=== PATIENT | male | born 1945 | race Hispanic/Latino ===

== ENCOUNTER 2018-02-11 08:50 | Observation (INO) | payer OTHER ==
[2018-02-07 12:58] LABS: BASOPHILS % (AUTO) 0.4 % (0.0-5.0); EOSINOPHILS % (AUTO) 0.7 % (0.0-8.0); HEMATOCRIT 36.6 % (42-54); LYMPHOCYTES % (AUTO) 13.3 % (21.0-51.0); MEAN CORPUSCULAR HEMOGLOBIN 33.2 pg (27.0-33.0); MEAN CORPUSCULAR HGB CONC 34.4 g/dL (32.0-36.0); MEAN CORPUSCULAR VOLUME 96.5 fL (79-99); MONOCYTES % (AUTO) 9.5 % (3.0-13.0); NEUTROPHILS % (AUTO) 76.1 % (40.0-77.0); PLATELET COUNT (AUTO) 198 K/uL (130-400); RED BLOOD CELL COUNT(AUTO) 3.79 MIL/uL (4.50-6.20); WHITE BLOOD COUNT (AUTO) 6.9 K/uL (4.8-10.8)
[2018-02-07 13:02] LABS: CREATININE 1.1 mg/dL (0.5-1.5); POTASSIUM 3.9 mmol/L (3.5-5.1)
[2018-02-07 13:08] LABS: APPEARANCE,URINE Clear (CLEAR); BILIRUBIN,URINE Negative (NEGATIVE); COLOR,URINE Yellow (YELLOW); GLUCOSE, URINE (UA) Negative (NEGATIVE); KETONES,URINE Negative (NEGATIVE); LEUKOCYTE ESTERASE ,URINE Negative (NEGATIVE); NITRATE,URINE Negative (NEGATIVE); OCCULT BLOOD,URINE Negative (NEGATIVE); PROTEIN,URINE Negative (NEGATIVE)
[2018-02-07 13:09] LABS: INR 2.92 (0.85-1.15); PARTIAL THROMBOPLASTIN TIME 42.5 SEC (26.3-35.5)
[2018-02-07 13:35] VITALS: BP 166/80
[2018-02-11] VITALS (11 sets, daily range): BP systolic 113–178; BP diastolic 52–89
[~2018-02-11] VITALS: Ht 162.6 cm; Wt 75.0 kg
[~2018-02-11 08:50] MED LIST: ALLO300T2 PO; ASCO500C6 PO; ASPI-555 PO; BENA40TA9 PO; LEVO125 PO; POTA-79 PO; TORS20TA4 PO; WARF4TAB72 PO; zinc PO
[2018-02-11 09:46] LABS: INR 1.88 (0.85-1.15); PARTIAL THROMBOPLASTIN TIME 38.5 SEC (26.3-35.5); PROTHROMBIN TIME 19.5 SEC (9.6-11.6)
[2018-02-11] MEDS ORDERED: NITROGLYCERIN 5 MG/ML 10 ML VIAL IV ONE (10:35)
[2018-02-11] MEDS ORDERED: HEPARIN SODIUM 1000UNIT/ML 10ML VIAL ONE (10:35)
[2018-02-11] MEDS ORDERED: ISOVUE-300 100 ML VIAL IV ONE (10:36)
[2018-02-11] MEDS ORDERED: LIDOCAINE HCL 2% 20ML ONE (10:36)
[2018-02-11] MEDS ORDERED: SODIUM BICARB 50MEQ 50ML VIAL ONE (10:36)
[2018-02-11] MEDS ORDERED: IOPAMIDOL-370 100 ML VIAL IV ONE (10:36)
[2018-02-11] MEDS ORDERED: SODIUM CHLORIDE 0.9% 1000ML 1,000 ML IV ONE (10:48)
[2018-02-11] MEDS ORDERED: HYDRALAZINE HCL 20 MG/ML VIAL IV ONE (13:00)
[2018-02-11] MEDS ORDERED: IOPAMIDOL-370 75 ML VIAL IV ONE (13:10)
[2018-02-11 13:46] LABS: INR > 7.00 (0.85-1.15)
[2018-02-11 13:47] LABS: PARTIAL THROMBOPLASTIN TIME > 120.0 SEC (26.3-35.5); PROTHROMBIN TIME > 63.0 SEC (9.6-11.6)
[2018-02-11] MEDS ORDERED: CLOPIDOGREL BISULFATE 300 MG TAB ONE (14:22)
[2018-02-11] MEDS ORDERED: SODIUM CHLORIDE 0.9% 1000ML 1,000 ML IV SCH (14:24)
[2018-02-11] MEDS ORDERED: MORPHINE SULFATE 5 MG/ML VIAL IVP SCH ×2 (14:30)
[2018-02-11] MEDS ORDERED: ONDANSETRON HCL 4 MG/2 ML VIAL IVP SCH (14:30)
[2018-02-11] MEDS ORDERED: ONDANSETRON HCL 4 MG/2 ML VIAL IVP PRN (14:30)
[2018-02-11] MEDS ORDERED: CLOP75TA14 PO (14:35)
[2018-02-11 16:32] LABS: INR 1.82 (0.85-1.15); PROTHROMBIN TIME 18.9 SEC (9.6-11.6)
[2018-02-11 16:33] LABS: BASOPHILS % (AUTO) 0.4 % (0.0-5.0); EOSINOPHILS % (AUTO) 0.6 % (0.0-8.0); HEMATOCRIT 37.4 % (42-54); LYMPHOCYTES % (AUTO) 9.5 % (21.0-51.0); MEAN CORPUSCULAR HEMOGLOBIN 33.4 pg (27.0-33.0); MEAN CORPUSCULAR HGB CONC 34.5 g/dL (32.0-36.0); MEAN CORPUSCULAR VOLUME 96.7 fL (79-99); MONOCYTES % (AUTO) 9.6 % (3.0-13.0); NEUTROPHILS % (AUTO) 79.9 % (40.0-77.0); PLATELET COUNT (AUTO) 197 K/uL (130-400); RED BLOOD CELL COUNT(AUTO) 3.87 MIL/uL (4.50-6.20); RED CELL DISTRIBUTION WIDTH 15.9 % (11.0-15.5); WHITE BLOOD COUNT (AUTO) 7.7 K/uL (4.8-10.8)
[2018-02-11] MEDS ORDERED: MORPHINE SULFATE 4 MG/1ML SYG IV PRN ×2 (19:45)
[2018-02-11] MEDS ORDERED: ATORVASTATIN CALCIUM 20 MG TABLET PO SCH (21:00)
[2018-02-11] MEDS: ASPIRIN 81 MG EC TAB PO SCH (22:39)
[2018-02-12 03:46] VITALS: BP 137/53
[2018-02-12 03:59] LABS: HEMATOCRIT 34.6 % (42-54); MEAN CORPUSCULAR HEMOGLOBIN 33.4 pg (27.0-33.0); MEAN CORPUSCULAR HGB CONC 34.3 g/dL (32.0-36.0); MEAN CORPUSCULAR VOLUME 97.3 fL (79-99); NUCLEATED RED BLOOD CELLS 0.1 % (0.0-0.19); PLATELET COUNT (AUTO) 186 K/uL (130-400); RED BLOOD CELL COUNT(AUTO) 3.56 MIL/uL (4.50-6.20); RED CELL DISTRIBUTION WIDTH 15.9 % (11.0-15.5); WHITE BLOOD COUNT (AUTO) 8.9 K/uL (4.8-10.8)
[2018-02-12 04:07] LABS: INR 1.6 (0.85-1.15); PARTIAL THROMBOPLASTIN TIME 37.2 SEC (26.3-35.5); PROTHROMBIN TIME 16.6 SEC (9.6-11.6)
[2018-02-12 04:18] LABS: CREATININE 1.2 mg/dL (0.5-1.5); POTASSIUM 4.3 mmol/L (3.5-5.1)
[2018-02-12] MEDS ORDERED: LEVOTHYROXINE 125 MCG TABLET PO SCH (07:30)
[2018-02-12 07:46] VITALS: BP 155/76
[2018-02-12] MEDS ORDERED: POTASSIUM CHLORIDE 20 MEQ ERTAB PO SCH (09:00)
[2018-02-12] MEDS ORDERED: ZINC 50 MG PO SCH (09:00)
[2018-02-12] MEDS ORDERED: TORSEMIDE 20 MG TAB PO SCH (09:00)
[2018-02-12] MEDS ORDERED: ASCORBIC ACID 500 MG TAB PO SCH (09:00)
[2018-02-12] MEDS: ASPIRIN 81 MG EC TAB PO SCH (09:00)
[2018-02-12] MEDS ORDERED: CLOPIDOGREL BISULFATE 75 MG TAB PO SCH (09:00)
[2018-02-12] MEDS ORDERED: BENAZEPRIL HCL 10 MG TABLET PO SCH (09:00)
[2018-02-12] MEDS ORDERED: ALLOPURINOL 300 MG TABLET PO SCH (09:00)
[2018-02-12] MEDS ORDERED: WARFARIN SODIUM 10 MG TABLET PO SCH (09:45)
[2018-02-12] MEDS ORDERED: ENOXAPARIN SODIUM 60 MG/0.6 ML SQ SCH (10:00)
[2018-02-12 11:15] VITALS: BP 141/55
[2018-02-12 16:19] VITALS: BP 133/55
== END 2018-02-12 18:23 | disposition home or self-care (01) ==
LOC: DAH 08:50 → DAHIP 08:51 → DAH 08:51 → 2AH 15:13
PROVIDERS: ADMIT Internal Medicine Cardiovascular Disease; ATTEND Internal Medicine Cardiovascular Disease
DX: I25.119 Atherosclerotic heart disease of native coronary artery with unspecified angina pectoris (principal); I11.0 Hypertensive heart disease with heart failure; I50.42 Chronic combined systolic (congestive) and diastolic (congestive) heart failure; I35.0 Nonrheumatic aortic (valve) stenosis; E78.5 Hyperlipidemia, unspecified; E03.9 Hypothyroidism, unspecified; I87.2 Venous insufficiency (chronic) (peripheral); I48.2 Chronic atrial fibrillation; I65.22 Occlusion and stenosis of left carotid artery; I70.8 Atherosclerosis of other arteries; Z95.1 Presence of aortocoronary bypass graft; Z95.2 Presence of prosthetic heart valve
CPT/HCPCS: 36223; 36415 ×3; 71045; 76882; 80048 ×2; 80061; 81003; 82948; 85025 ×2; 85027; 85347 ×2; 85610 ×5; 85730 ×6; 86850; 86900; 86901; 93005; 93461; 96372; 96374; 96375; A4606; A6250; C1725 ×3; C1769 ×6; C1874 ×4; C1887 ×3; C1893; C1894 ×4; C9600 ×2; C9601; C9604; G0378 ×34; J0360; J1644; J1650; J2270; J2405; J3490 ×3; J7030; Q9967 ×3

== ENCOUNTER → 2018-05-29 | Outpatient (CLI) | payer OTHER ==
[~2018-05-29] MED LIST changes: -ASPI-555 PO; +CLOP75TA14 PO; +IOPAMIDOL-370 100 ML VIAL IV ONE; +ISOVUE-370 50ML VIAL IV ONE
== END | disposition home or self-care (01) ==
LOC: OIH 09:12
PROVIDERS: ATTEND Internal Medicine Cardiovascular Disease
DX: I51.7 Cardiomegaly (principal); N26.1 Atrophy of kidney (terminal); I70.1 Atherosclerosis of renal artery; I70.0 Atherosclerosis of aorta; I77.4 Celiac artery compression syndrome
CPT/HCPCS: 75635; Q9967 ×2

== ENCOUNTER 2020-11-24 18:37 | Inpatient (IN) | payer OTHER ==
[~2020-11-24] VITALS: Ht 162.6 cm; Wt 68.0 kg
[~2020-11-24 18:37] MED LIST changes: -BENA40TA9 PO; +BENA40TA92 PO; -IOPAMIDOL-370 100 ML VIAL IV ONE; -ISOVUE-370 50ML VIAL IV ONE
[2020-11-24 19:08] LABS: BASOPHILS % (AUTO) 0.4 % (0.0-5.0); HEMATOCRIT 37.8 % (42-54); LYMPHOCYTES % (AUTO) 5.7 % (21.0-51.0); MEAN CORPUSCULAR HGB CONC 33.9 g/dL (32.0-36.0); MEAN CORPUSCULAR VOLUME 100.5 fL (79-99); MONOCYTES % (AUTO) 8.3 % (3.0-13.0); NEUTROPHILS % (AUTO) 84.2 % (40.0-77.0); PLATELET COUNT (AUTO) 185 K/uL (130-400); RED BLOOD CELL COUNT(AUTO) 3.76 MIL/uL (4.50-6.20); RED CELL DISTRIBUTION WIDTH 14.6 % (11.0-15.5); WHITE BLOOD COUNT (AUTO) 11.3 K/uL (4.8-10.8)
[2020-11-24 19:19] LABS: CREATININE 1.6 mg/dL (0.5-1.5); POTASSIUM 4.6 mmol/L (3.5-5.1)
[2020-11-24 19:21] LABS: INR 2.02 (0.85-1.15); PROTHROMBIN TIME 20.7 SEC (9.6-11.6)
[2020-11-24 19:22] LABS: PARTIAL THROMBOPLASTIN TIME 38.7 SEC (26.3-35.5)
[2020-11-24 19:32] LABS: ALBUMIN 3.3 g/dL (3.5-5.0); BILIRUBIN,TOTAL 1.4 mg/dL (0.2-1.0); TOTAL PROTEIN, SERUM 6.6 g/dL (6.0-8.3)
[2020-11-24 19:58] LABS: B-TYPE NATRIURETIC PEPTIDE 332 pg/mL (0-100)
[2020-11-24] MEDS ORDERED: CEFTRIAXONE 1G VIAL ONE (20:23)
[2020-11-24] MEDS ORDERED: 0.9%NACL 50ML 50 ML IV ONE (20:24)
[2020-11-24 21:24] LABS: APPEARANCE,URINE Clear (CLEAR); BILIRUBIN,URINE Negative (NEGATIVE); COLOR,URINE Yellow (YELLOW); GLUCOSE, URINE (UA) Negative (NEGATIVE); KETONES,URINE Trace mg/dL (NEGATIVE); LEUKOCYTE ESTERASE ,URINE Negative (NEGATIVE); NITRATE,URINE Negative (NEGATIVE); OCCULT BLOOD,URINE Trace (NEGATIVE); PROTEIN,URINE Negative (NEGATIVE)
[2020-11-24 21:33] LABS: BACTERIA,URINE Rare /HPF (None Seen); MUCUS,URINE Rare LPF (None Seen); SQUAMOUS EPITHELIAL CELL,UR Few /HPF (0-2); WBC,URINE 0-1 /HPF (0-1)
[2020-11-25] MEDS ORDERED: ONDANSETRON 4MG INJ IV PRN
[2020-11-25] MEDS ORDERED: ACETAMINOPHEN 325 MG TAB PO PRN ×2
[2020-11-25] MEDS ORDERED: DOXYCYCLINE 100MG+NS 250ML 250 ML IV ONE ×2 (00:15→11:42)
[2020-11-25 01:09] LABS: TROPONIN I 0.39 ng/mL (0.00-0.06)
[2020-11-25] MEDS ORDERED: 0.9%NACL 1000ML 1,000 ML IV ONE ×2 (01:40→11:43)
[2020-11-25] MEDS: 0.9%NACL 1000ML 1,000 ML IV SCH (02:30)
[2020-11-25] MEDS: DOXYCYCLINE 100MG+NS 250ML 250 ML IV SCH (02:30)
[2020-11-25 05:46] LABS: BASOPHILS % (AUTO) 0.4 % (0.0-5.0); HEMATOCRIT 38.8 % (42-54); LYMPHOCYTES % (AUTO) 8.4 % (21.0-51.0); MEAN CORPUSCULAR HEMOGLOBIN 33.5 pg (27.0-33.0); MEAN CORPUSCULAR HGB CONC 32.7 g/dL (32.0-36.0); MEAN CORPUSCULAR VOLUME 102.4 fL (79-99); MONOCYTES % (AUTO) 17.3 % (3.0-13.0); NEUTROPHILS % (AUTO) 72.1 % (40.0-77.0); PLATELET COUNT (AUTO) 136 K/uL (130-400); RED BLOOD CELL COUNT(AUTO) 3.79 MIL/uL (4.50-6.20); RED CELL DISTRIBUTION WIDTH 14.5 % (11.0-15.5); WHITE BLOOD COUNT (AUTO) 9.7 K/uL (4.8-10.8)
[2020-11-25 06:07] LABS: CREATININE 1.5 mg/dL (0.5-1.5); POTASSIUM 4.7 mmol/L (3.5-5.1)
[2020-11-25 08:00] LABS: TROPONIN I 1.42 ng/mL (0.00-0.06)
[2020-11-25] MEDS ORDERED: ASPIRIN 81MG CHEW TAB ONE (08:15)
[2020-11-25] MEDS ORDERED: FAMOTIDINE 20MG TAB ONE (08:16)
[2020-11-25] MEDS ORDERED: CEFTRIAXONE 1G VIAL ONE (08:16)
[2020-11-25] MEDS ORDERED: ENOXAPARIN SODIUM 30 MG/0.3 ML SQ ONE (08:16)
[2020-11-25] MEDS ORDERED: 0.9%NACL 50ML 50 ML IV ONE (08:17)
[2020-11-25] MEDS ORDERED: ENOXAPARIN SODIUM 30 MG/0.3 ML SQ SCH (09:00)
[2020-11-25] MEDS ORDERED: CEFTRIAXONE 1G VIAL IV SCH (09:00)
[2020-11-25] MEDS ORDERED: PHARMACY COMMUNICATION MISC SCH (09:15)
[2020-11-25] MEDS ORDERED: ATROPINE 1MG SYG IVP ONE ×3 (09:23→13:00)
[2020-11-25] MEDS ORDERED: LACTATED RINGERS 1000ML 1,000 ML IV SCH (09:45)
[2020-11-25] MEDS ORDERED: ALBUTEROL 0.083% 2.5 MG/3 ML INH IH ONE ×2 (11:08→11:11)
[2020-11-25] MEDS ORDERED: LEVOTHYROXINE 100MCG VIAL IV SCH (11:15)
[2020-11-25] MEDS ORDERED: ZOSYN 3.375GM+NS 50ML 50 ML IV ONE (12:18)
[2020-11-25] MEDS ORDERED: FUROSEMIDE 20MG VIAL ONE (12:18)
[2020-11-25] MEDS: ALBUTEROL 0.083% 2.5 MG/3 ML INH IH SCH ×2 (12:57→18:28)
[2020-11-25 14:39] LABS: TROPONIN I 0.91 ng/mL (0.00-0.06)
[2020-11-25] MEDS ORDERED: BUDESONIDE 0.5 MG/2 ML INH IH ONE (18:23)
[2020-11-25] MEDS: BUDESONIDE 0.5 MG/2 ML INH IH SCH (18:28)
[2020-11-26] VITALS (16 sets, daily range): BP systolic 114–156; BP diastolic 40–88
[2020-11-26] MEDS: ALBUTEROL 0.083% 2.5 MG/3 ML INH IH SCH ×5 (00:04→23:56)
[2020-11-26] MEDS ORDERED: ZOSYN 3.375GM+NS 50ML 50 ML IV ONE (00:58)
[2020-11-26] MEDS ORDERED: DOXYCYCLINE 100MG+NS 250ML 250 ML IV ONE (00:59)
[2020-11-26] MEDS: FUROSEMIDE 20MG VIAL IV SCH ×2 (02:30→08:36)
[2020-11-26] MEDS: ZOSYN 3.375GM+NS 50ML 50 ML IV SCH ×4 (02:30→20:09)
[2020-11-26] MEDS: ASPIRIN 81MG CHEW TAB PO SCH ×2 (02:30→08:35)
[2020-11-26] MEDS: 0.9%NACL 1000ML 1,000 ML IV SCH (02:30)
[2020-11-26] MEDS: DOXYCYCLINE 100MG+NS 250ML 250 ML IV SCH ×3 (02:30→23:08)
[2020-11-26] MEDS: FAMOTIDINE 20MG TAB PO SCH ×2 (02:30→08:35)
[2020-11-26] MEDS: ALBUMIN (HUMAN) 5% 250 ML IV SCH (02:30)
[2020-11-26 04:19] LABS: BASOPHILS % (AUTO) 0.5 % (0.0-5.0); EOSINOPHILS % (AUTO) 0.2 % (0.0-8.0); HEMATOCRIT 33.7 % (42-54); LYMPHOCYTES % (AUTO) 7.7 % (21.0-51.0); MEAN CORPUSCULAR HEMOGLOBIN 33.8 pg (27.0-33.0); MEAN CORPUSCULAR HGB CONC 33.2 g/dL (32.0-36.0); MEAN CORPUSCULAR VOLUME 101.8 fL (79-99); MONOCYTES % (AUTO) 16.5 % (3.0-13.0); NEUTROPHILS % (AUTO) 73.3 % (40.0-77.0); PLATELET COUNT (AUTO) 134 K/uL (130-400); RED BLOOD CELL COUNT(AUTO) 3.31 MIL/uL (4.50-6.20); RED CELL DISTRIBUTION WIDTH 14.6 % (11.0-15.5); WHITE BLOOD COUNT (AUTO) 6.5 K/uL (4.8-10.8)
[2020-11-26 04:44] LABS: CREATININE 1.5 mg/dL (0.5-1.5); POTASSIUM 3.8 mmol/L (3.5-5.1); THYROID STIMULATING HORMONE 3.35 uIU/mL (0.36-3.74)
[2020-11-26] MEDS: BUDESONIDE 0.5 MG/2 ML INH IH SCH ×2 (06:27→19:05)
[2020-11-26] MEDS ORDERED: LEVOTHYROXINE 100 MCG TABLET PO SCH (06:30)
[2020-11-26] MEDS ORDERED: PHARMACY COMMUNICATION MISC SCH (08:45)
[2020-11-26] MEDS: HEPARIN 25,000 UNITS/250ML D5W 250 ML IV PRN (09:55)
[2020-11-26] MEDS ORDERED: HEPARIN 5,000 UNIT VIAL SQ SCH (10:30)
[2020-11-26] MEDS ORDERED: ATROPINE 1MG SYG IVP SCH ×2 (10:45→12:00)
[2020-11-26] MEDS ORDERED: ATROPINE 1MG SYG IVP ONE (11:04)
[2020-11-26 16:28] LABS: INR 2.15 (0.85-1.15); PROTHROMBIN TIME 21.9 SEC (9.6-11.6)
[2020-11-26 16:45] LABS: PARTIAL THROMBOPLASTIN TIME > 139.0 SEC (26.3-35.5)
[2020-11-26 22:44] LABS: INR 2.06 (0.85-1.15)
[2020-11-26 23:03] LABS: PARTIAL THROMBOPLASTIN TIME > 139.0 SEC (26.3-35.5)
[2020-11-27] VITALS (24 sets, daily range): BP systolic 104–158; BP diastolic 46–97
[2020-11-27 04:02] LABS: INR 2.09 (0.85-1.15); PROTHROMBIN TIME 21.3 SEC (9.6-11.6)
[2020-11-27] MEDS: ZOSYN 3.375GM+NS 50ML 50 ML IV SCH ×3 (04:12→20:06)
[2020-11-27 04:18] LABS: PARTIAL THROMBOPLASTIN TIME > 139.0 SEC (26.3-35.5)
[2020-11-27] MEDS: BUDESONIDE 0.5 MG/2 ML INH IH SCH ×2 (06:17→18:39)
[2020-11-27] MEDS: ALBUTEROL 0.083% 2.5 MG/3 ML INH IH SCH ×3 (06:17→18:27)
[2020-11-27] MEDS: LEVOTHYROXINE 25 MCG TABLET PO SCH (06:43)
[2020-11-27] MEDS: LEVOTHYROXINE 112 MCG TABLET PO SCH (06:43)
[2020-11-27 10:14] LABS: INR 1.94 (0.85-1.15); PROTHROMBIN TIME 19.9 SEC (9.6-11.6)
[2020-11-27] MEDS: ASPIRIN 81MG CHEW TAB PO SCH (10:16)
[2020-11-27] MEDS: FAMOTIDINE 20MG TAB PO SCH (10:16)
[2020-11-27] MEDS: FUROSEMIDE 20MG VIAL IV SCH (10:16)
[2020-11-27] MEDS: DOXYCYCLINE 100MG+NS 250ML 250 ML IV SCH ×2 (12:02→23:05)
[2020-11-27 16:29] LABS: INR 1.86 (0.85-1.15); PROTHROMBIN TIME 19.2 SEC (9.6-11.6)
[2020-11-27 16:30] LABS: PARTIAL THROMBOPLASTIN TIME 68.7 SEC (26.3-35.5)
[2020-11-27] MEDS: HEPARIN 25,000 UNITS/250ML D5W 250 ML IV PRN (17:25)
[2020-11-27] MEDS ORDERED: 0.9%NACL 100ML 100 ML IV ONE (20:56)
[2020-11-27 22:51] LABS: INR 1.84 (0.85-1.15)
[2020-11-27 22:53] LABS: PARTIAL THROMBOPLASTIN TIME 62.4 SEC (26.3-35.5)
[2020-11-28] VITALS (12 sets, daily range): BP systolic 134–166; BP diastolic 47–79
[2020-11-28] MEDS: ALBUTEROL 0.083% 2.5 MG/3 ML INH IH SCH ×4 (00:03→18:25)
[2020-11-28] MEDS: ZOSYN 3.375GM+NS 50ML 50 ML IV SCH ×3 (05:27→21:34)
[2020-11-28 05:48] LABS: BASOPHILS % (AUTO) 0.6 % (0.0-5.0); EOSINOPHILS % (AUTO) 0.6 % (0.0-8.0); HEMATOCRIT 32.5 % (42-54); LYMPHOCYTES % (AUTO) 9.6 % (21.0-51.0); MEAN CORPUSCULAR HEMOGLOBIN 33.8 pg (27.0-33.0); MEAN CORPUSCULAR HGB CONC 34.5 g/dL (32.0-36.0); MEAN CORPUSCULAR VOLUME 98.2 fL (79-99); NEUTROPHILS % (AUTO) 71.8 % (40.0-77.0); PLATELET COUNT (AUTO) 150 K/uL (130-400); RED BLOOD CELL COUNT(AUTO) 3.31 MIL/uL (4.50-6.20); RED CELL DISTRIBUTION WIDTH 14.5 % (11.0-15.5); WHITE BLOOD COUNT (AUTO) 6.7 K/uL (4.8-10.8)
[2020-11-28 06:03] LABS: INR 1.66 (0.85-1.15); PROTHROMBIN TIME 17.3 SEC (9.6-11.6)
[2020-11-28 06:04] LABS: PARTIAL THROMBOPLASTIN TIME 65.1 SEC (26.3-35.5)
[2020-11-28 06:10] LABS: ALBUMIN 2.4 g/dL (3.5-5.0); CREATININE 1.3 mg/dL (0.5-1.5); MAGNESIUM 1.7 mg/dL (1.80-2.40); POTASSIUM 3.2 mmol/L (3.5-5.1); TOTAL PROTEIN, SERUM 4.6 g/dL (6.0-8.3)
[2020-11-28] MEDS: BUDESONIDE 0.5 MG/2 ML INH IH SCH ×2 (06:21→18:25)
[2020-11-28] MEDS: LEVOTHYROXINE 112 MCG TABLET PO SCH (06:30)
[2020-11-28] MEDS: LEVOTHYROXINE 25 MCG TABLET PO SCH (06:30)
[2020-11-28] MEDS ORDERED: POTASSIUM CHLORIDE 10% ELIXIR 20 MEQ/15 ML UDCUP PO PRN (07:45)
[2020-11-28] MEDS ORDERED: MAGNESIUM 2GM PREMIX 50ML 50 ML IV SCH (07:45)
[2020-11-28] MEDS ORDERED: POTASSIUM CHLORIDE 20MEQ/100ML 100 ML IV PRN (07:45)
[2020-11-28] MEDS: FUROSEMIDE 20MG VIAL IV SCH (09:44)
[2020-11-28] MEDS: FAMOTIDINE 20MG TAB PO SCH (09:45)
[2020-11-28] MEDS: ASPIRIN 81MG CHEW TAB PO SCH (09:45)
[2020-11-28] MEDS ORDERED: HEPARIN 25,000 UNITS/250ML D5W 250 ML IV ONE (10:08)
[2020-11-28] MEDS ORDERED: HEPARIN 25,000 UNITS/250ML D5W 250 ML IV SCH (10:30)
[2020-11-28] MEDS: WARFARIN SODIUM 2 MG TAB PO SCH ×2 (11:23→14:01)
[2020-11-28] MEDS: DOXYCYCLINE 100MG+NS 250ML 250 ML IV SCH (13:18)
[2020-11-28] MEDS: BALSAM PERU/CASTOR OIL 60 GM TUBE TP SCH (21:25)
[2020-11-29] VITALS (10 sets, daily range): BP systolic 126–173; BP diastolic 47–67
[2020-11-29] MEDS: ALBUTEROL 0.083% 2.5 MG/3 ML INH IH SCH ×5 (00:43→23:08)
[2020-11-29] MEDS: DOXYCYCLINE 100MG+NS 250ML 250 ML IV SCH ×2 (01:19→11:40)
[2020-11-29] MEDS: ZOSYN 3.375GM+NS 50ML 50 ML IV SCH ×3 (05:00→21:19)
[2020-11-29 06:09] LABS: BASOPHILS % (AUTO) 0.6 % (0.0-5.0); EOSINOPHILS % (AUTO) 1.1 % (0.0-8.0); HEMATOCRIT 33.7 % (42-54); LYMPHOCYTES % (AUTO) 10.8 % (21.0-51.0); MEAN CORPUSCULAR HEMOGLOBIN 32.5 pg (27.0-33.0); MEAN CORPUSCULAR HGB CONC 32.6 g/dL (32.0-36.0); MEAN CORPUSCULAR VOLUME 99.7 fL (79-99); MONOCYTES % (AUTO) 13.1 % (3.0-13.0); NEUTROPHILS % (AUTO) 70.3 % (40.0-77.0); NUCLEATED RED BLOOD CELLS 0.3 % (0.0-0.19); PLATELET COUNT (AUTO) 157 K/uL (130-400); RED BLOOD CELL COUNT(AUTO) 3.38 MIL/uL (4.50-6.20); RED CELL DISTRIBUTION WIDTH 14.6 % (11.0-15.5); WHITE BLOOD COUNT (AUTO) 6.3 K/uL (4.8-10.8)
[2020-11-29] MEDS: BUDESONIDE 0.5 MG/2 ML INH IH SCH ×2 (06:25→18:07)
[2020-11-29 06:33] LABS: INR 1.63 (0.85-1.15)
[2020-11-29 06:42] LABS: CREATININE 1.1 mg/dL (0.5-1.5); POTASSIUM 3.2 mmol/L (3.5-5.1)
[2020-11-29] MEDS: LEVOTHYROXINE 25 MCG TABLET PO SCH (06:44)
[2020-11-29] MEDS: LEVOTHYROXINE 112 MCG TABLET PO SCH (06:44)
[2020-11-29] MEDS: ASPIRIN 81MG CHEW TAB PO SCH (08:41)
[2020-11-29] MEDS: FUROSEMIDE 20MG VIAL IV SCH (08:41)
[2020-11-29] MEDS: FAMOTIDINE 20MG TAB PO SCH (08:41)
[2020-11-29] MEDS: BALSAM PERU/CASTOR OIL 60 GM TUBE TP SCH ×2 (08:41→21:19)
[2020-11-29] MEDS: KCL 20 MEQ ERTAB PO PRN ×3 (09:28→18:58)
[2020-11-29] MEDS: WARFARIN SODIUM 2 MG TAB PO SCH (17:17)
[2020-11-30] MEDS: DOXYCYCLINE 100MG+NS 250ML 250 ML IV SCH ×2 (00:33→12:00)
[2020-11-30 03:57] VITALS: BP 117/46
[2020-11-30] MEDS ORDERED: ZOSYN 3.375GM+NS 50ML 50 ML IV ONE (05:59)
[2020-11-30] MEDS: ZOSYN 3.375GM+NS 50ML 50 ML IV SCH ×2 (06:01→12:47)
[2020-11-30] MEDS ORDERED: LEVOTHYROXINE 112 MCG TABLET ONE (06:13)
[2020-11-30] MEDS ORDERED: LEVOTHYROXINE 25 MCG TABLET ONE (06:13)
[2020-11-30] MEDS: LEVOTHYROXINE 25 MCG TABLET PO SCH (06:14)
[2020-11-30] MEDS: LEVOTHYROXINE 112 MCG TABLET PO SCH (06:14)
[2020-11-30 06:15] LABS: BASOPHILS % (AUTO) 0.8 % (0.0-5.0); EOSINOPHILS % (AUTO) 1.4 % (0.0-8.0); HEMATOCRIT 31.6 % (42-54); LYMPHOCYTES % (AUTO) 10.5 % (21.0-51.0); MEAN CORPUSCULAR HEMOGLOBIN 34.9 pg (27.0-33.0); MEAN CORPUSCULAR HGB CONC 35.1 g/dL (32.0-36.0); MEAN CORPUSCULAR VOLUME 99.4 fL (79-99); MONOCYTES % (AUTO) 13.2 % (3.0-13.0); NUCLEATED RED BLOOD CELLS 0.6 % (0.0-0.19); PLATELET COUNT (AUTO) 143 K/uL (130-400); RED BLOOD CELL COUNT(AUTO) 3.18 MIL/uL (4.50-6.20); RED CELL DISTRIBUTION WIDTH 14.6 % (11.0-15.5); WHITE BLOOD COUNT (AUTO) 7.3 K/uL (4.8-10.8)
[2020-11-30 06:24] LABS: INR 1.81 (0.85-1.15); PROTHROMBIN TIME 18.7 SEC (9.6-11.6)
[2020-11-30 06:27] LABS: ALBUMIN 2.2 g/dL (3.5-5.0); BILIRUBIN,TOTAL 0.9 mg/dL (0.2-1.0); TOTAL PROTEIN, SERUM 4.5 g/dL (6.0-8.3)
[2020-11-30 07:03] LABS: INR 1.76 (0.85-1.15); PROTHROMBIN TIME 18.2 SEC (9.6-11.6)
[2020-11-30 07:04] LABS: PARTIAL THROMBOPLASTIN TIME 68.5 SEC (26.3-35.5)
[2020-11-30 07:39] VITALS: BP 150/59
[2020-11-30] MEDS: FUROSEMIDE 20MG VIAL IV SCH (09:47)
[2020-11-30] MEDS: ASPIRIN 81MG CHEW TAB PO SCH (09:48)
[2020-11-30] MEDS: BALSAM PERU/CASTOR OIL 60 GM TUBE TP SCH (09:48)
[2020-11-30] MEDS: FAMOTIDINE 20MG TAB PO SCH (09:48)
[2020-11-30 11:41] VITALS: BP 152/60
== END 2020-11-30 15:34 | disposition hospice, home (50) | DRG 871 ==
LOC: EDH 18:37 → EDHIP 23:47 → 2DH 11-26 02:42 → UNDODISIN 11-29 19:00 → 4DH 11-30 02:37
PROVIDERS: ADMIT Internal Medicine; ATTEND Internal Medicine
PROC: 02HV33Z Insertion of Infusion Device into Superior Vena Cava, Percutaneous Approach (ICD-10-PCS; principal; 2020-11-28)
DX: A41.9 Sepsis, unspecified organism (principal); J18.9 Pneumonia, unspecified organism; I50.43 Acute on chronic combined systolic (congestive) and diastolic (congestive) heart failure; I21.A1 Myocardial infarction type 2; N17.9 Acute kidney failure, unspecified; I44.2 Atrioventricular block, complete; I13.0 Hypertensive heart and chronic kidney disease with heart failure and stage 1 through stage 4 chronic kidney disease, or unspecified chronic kidney disease; I47.1 Supraventricular tachycardia; I42.0 Dilated cardiomyopathy; M62.82 Rhabdomyolysis; G93.40 Encephalopathy, unspecified; I48.20 Chronic atrial fibrillation, unspecified; I49.8 Other specified cardiac arrhythmias; N18.30 Chronic kidney disease, stage 3 unspecified; E78.5 Hyperlipidemia, unspecified; E88.09 Other disorders of plasma-protein metabolism, not elsewhere classified; R54 Age-related physical debility; D50.9 Iron deficiency anemia, unspecified; E03.9 Hypothyroidism, unspecified; H40.9 Unspecified glaucoma; H50.9 Unspecified strabismus; I08.3 Combined rheumatic disorders of mitral, aortic and tricuspid valves; I25.10 Atherosclerotic heart disease of native coronary artery without angina pectoris; I27.20 Pulmonary hypertension, unspecified; I87.2 Venous insufficiency (chronic) (peripheral); L40.9 Psoriasis, unspecified; L89.309 Pressure ulcer of unspecified buttock, unspecified stage; M06.9 Rheumatoid arthritis, unspecified; Z60.2 Problems related to living alone; Z66 Do not resuscitate; Z51.5 Encounter for palliative care; Z20.822 Contact with and (suspected) exposure to COVID-19; Z88.8 Allergy status to other drugs, medicaments and biological substances; Z74.01 Bed confinement status; Z79.01 Long term (current) use of anticoagulants; Z79.02 Long term (current) use of antithrombotics/antiplatelets; Z79.899 Other long term (current) drug therapy; Z87.891 Personal history of nicotine dependence; Z95.0 Presence of cardiac pacemaker; Z95.1 Presence of aortocoronary bypass graft; Z95.2 Presence of prosthetic heart valve
CPT/HCPCS: 36415; 36569; 70450; 71045; 71250; 80048; 80053; 81001; 82550; 82607; 82746; 83605; 83735; 83874; 83880; 84132; 84134; 84145; 84439; 84443; 84484; 85025; 85610; 85730; 86738; 87040; 87088; 87426; 87449; 87804; 93005; 93306; 93356; 94640; 94664; 97039; 99291; C1751; C1894; G0378; J0461; J0696; J1644; J1650; J1940; J2543; J3490; J7030; P9045; U0003